=== PATIENT | male | born 1955 | race Caucasian/White ===

== ENCOUNTER 2024-10-07 09:20 | Outpatient (REF) | payer MEDICARE, OTHER, SELFPAY ==
--- OUTSIDE RECORDS SUMMARY | 2024-10-07 10:19 | XMS_ITS ---
Author Name [facility] Organization Unknown Encounters Encounter Type Encounter Reason Primary Diagnosis Location Date Ambulatory [facility], [facility]. ([facility]) 05/21/2024
[2024-10-07 11:16] LABS: Rheumatoid Factor < 13.0 IU/mL (<15.0)
[2024-10-07 11:21] LABS: Erythrocyte Sedimentation Rate 12 MM/HR (0-15)
[2024-10-08 09:23] LABS: Lyme Abs Screen <0.90 index
[2024-10-09 13:18] LABS: IgA 309 mg/dL (70-320); IgG 1127 mg/dL (600-1540); IgM 85 mg/dL (50-300)
[2024-10-11 22:24] LABS: HLA B27 Negative (Negative)
== END 2024-10-07 09:21 | disposition home or self-care (01) ==
LOC: HO.LAB 09:20
PROVIDERS: Visit Provider Psychiatry & Neurology Neurology
DX: G62.9 Polyneuropathy, unspecified (principal); M54.16 Radiculopathy, lumbar region
CPT/HCPCS: 36415; 82784; 85652; 86334; 86431; 86617; 86618; 86812

== ENCOUNTER 2024-11-03 09:51 | Outpatient (AMB) | payer MEDICARE, OTHER, SELFPAY ==
--- NOTE | 2024-11-03 10:08 | A.OFFVIS_ITS ---
Intake Visit Reasons: 4 week Allergies No Known Allergies Allergy (Unverified 01/07/20 16:39) HPI Comments Details: Patient seen by Dr Salvador [facility] Medical History (Updated 11/04/24 @ 08:39 by Kyle Salvador MD) Pre-diabetes HLD (hyperlipidemia) CAD (coronary artery disease) Small fiber neuropathy Assessment & Plan Assessment & Plan (1) Small fiber neuropathy: Comment: EMG/NCS at [facility] in August 2024: Reported normal but sural amplitudes are significant diminished, and superficial peroneal studies were not performed. Tibial motor CVs were in 30s. MRI T spine at [facility] in August 2024: DJD, extrusions at T6/7 and T7/8 (reported) MRI LS spine at [facility] in Jul 2024: DJD (reported) XR chest in Jun 2024: WNL (reported) XR LS spine in Jun 2024: Multilevel DJD with dextroscoliosis (reported) Code(s): G62.9 - Polyneuropathy, unspecified Category: Medical (2) Peripheral neuropathy: Code(s): G62.9 - Polyneuropathy, unspecified Category: Medical Qualifiers: Peripheral neuropathy type: polyneuropathy, unspecified Qualified Code(s): G62.9 - Polyneuropathy, unspecified Plan Seen by Dr. Salvador Coding Level of Care Code Est Pt Level 4 (13971) Diagnoses Small fiber neuropathy G62.9 Peripheral polyneuropathy G62.9 Peripheral neuropathy type: polyneuropathy, unspecified
--- OUTSIDE RECORDS SUMMARY | 2024-11-03 10:38 | XMS_ITS ---
Author Name [facility] Organization Unknown Encounters Encounter Type Encounter Reason Primary Diagnosis Location Date Ambulatory [facility], [facility]. ([facility]) 05/21/2024
--- OUTSIDE RECORDS SUMMARY | 2024-11-03 10:38 | XMS_ITS | Encounter Summary ---
Author Organization [facility] Address [address] [place] [address] Care Team Providers Care Software Engineering Manager Name Role Phone Maria Antonia pineda DAVIAN Primary Care Provider [phone] Encounter Details Date Type Department Care Team (Late st Contact Info) Description 06/18/[address] [facility] - Main Lab [address] [place] [phone] Juliann Prieto, PA [address] [facility] [address] [place] [address] Dysuria Social History Tobacco Use Types Packs/Day Years Used Date Smoking Tobacco: Never Smokeless Tobacco: Never Alcohol Use Standard Drinks/Week Comments Never 0 (1 standard drink = 0.6 oz pur e alcohol) Sex and Gender Information Value Date Recorded Sex Assigned at Not on file Legal Sex Male 1:31 PM EST Gender Identity Not on file Sexual Orientation Not on file documented as of this encounter Plan of Treatment Not on file documented as of this encounter Procedures Procedure Name Priority Date/Time Associated Diagnosis Comments CHLAMYDIA TRACHOMATIS AND NEISSERIA GONORRHOEAE PCR Routine 06/18/2024 1:20 PM EST Dysuria documented in this encounter Results * Chlamydia trachomatis and Neisseria gonorrhoeae molecular study (06/18/2024 1:20 PM EST) Neisseria gonorrhoeae PCR Negative Negative LAB MOLECULAR DIAGNOSTICS METHOD 06/19/2024 11:[address] [facility] Chlamydia trachomatis PCR Negative Negative LAB MOLECULAR DIAGNOSTICS METHOD 06/19/2024 11:[address] [facility] Urine Urethral structure / Unknown 06/18/2024 1:20 PM EST 06/18/2024 3:43 PM EST us Juliann [facility] MICROBIOLOGY - GENERAL ORDER MANPREET Final Result [facility] [address] [place] [address], documented in this encounter Visit Diagnoses Diagnosis Dysuria documented in this encounter Care Teams Software Engineering Manager Relationship Specialty Start Date End Date Maria Antonia Miramontes NP [address] [facility] [place] [address] PCP - General 03/01/23 documented as of this encounter
== END 2024-11-03 10:25 | disposition left against medical advice (07) ==
LOC: HO.HSM 09:52
PROVIDERS: PCP Nurse Practitioner Gerontology; Referring Provider Nurse Practitioner Gerontology; Visit Provider Psychiatry & Neurology Neurology
DX: G62.9 Polyneuropathy, unspecified (principal)
CPT/HCPCS: 99214

== ENCOUNTER → 2024-11-03 09:51 | Outpatient (BNVA) | payer MEDICARE, OTHER, SELFPAY | PROVIDERS: PCP Nurse Practitioner Gerontology; Referring Provider Nurse Practitioner Gerontology; Visit Provider Psychiatry & Neurology Neurology | DX: G62.9 Polyneuropathy, unspecified (principal) | CPT/HCPCS: 99212 ==

== ENCOUNTER 2024-11-04 08:16 | Outpatient (AMB) | payer MEDICARE, OTHER, SELFPAY ==
--- OUTSIDE RECORDS SUMMARY | 2024-11-04 08:19 | XMS_ITS | Encounter Summary ---
Author Organization [facility] Address [address] [place] [address] Care Team Providers Care Underbaster Name Role Phone Maria Antonia pineda DAVIAN Primary Care Provider Encounter Details Date Type Department Care Team (Late st Contact Info) Description 06/18/2024 Lab Requisition [facility] - Main Lab [address] [place] [phone] Juliann Prieto, PA [address] [facility] [address] [place] [address] Dysuria Social History Tobacco Use Types Packs/Day [...] MOLECULAR DIAGNOSTICS METHOD 06/19/2024 11:45 AM EST [facility] Chlamydia trachomatis PCR Negative Negative LAB MOLECULAR DIAGNOSTICS METHOD 06/19/2024 11:45 AM EST [facility] Urine Urethral structure / Unknown 06/18/2024 1:20 PM EST 06/18/2024 3:43 PM EST us Juliann [facility] MICROBIOLOGY - GENERAL ORDER MANPREET Final Result [facility] [address] [place] [address], documented in this encounter Visit Diagnoses Diagnosis Dysuria documented in this encounter Care Teams Underbaster Relationship Specialty Start Date End Date Maria Antonia Miramontes NP [address] [facility] [address] PCP - General 03/01/23 documented as of this encounter
--- NOTE | 2024-11-04 08:25 | A.OFFVIS_ITS ---
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 [facility] Medical History (Updated 11/04/24 @ 08:39 by Kyle Salvador MD) Pre-diabetes HLD (hyperlipidemia) CAD (coronary artery disease) Small fiber neuropathy Review of Systems Const Details: Constitutional:?No fever, chills, fatigue, weight loss, or night sweats. HEENT:?No headache, vision changes, hearing loss, nasal congestion, sore throat. Neurological:? Numbness in feet Psychiatric:?No anxiety, depression, mood swings, sleep disturbance, or hallucinations. Endocrine:?No heat/cold intolerance, polydipsia, polyuria, or hair/skin changes. Hematologic/Lymphatic:?No easy bruising, bleeding, or lymphadenopathy. Integumentary (Skin):?No rash, lesions, itching, or color changes. ? Physical Exam Neuro Other: Mental Status: Alert and oriented to person, place, and time. Normal attention. Normal spontaneous speech, fluency, and comprehension. No obvious issues with mood and memory. Affect is appropriate. Cranial Nerves: CN II: Visual giron full to confrontation, visual acuity intact. CN III, IV, : Pupils equal, round, reactive to light and accommodation. Extraocular movements are normal. CN V: Facial sensation is normal. CN VII: Facial movements symmetrical. CN VIII: Hearing intact to bedside conversation is normal. CN IX, X: Palate elevates symmetrically. CN XI: Shoulder shrug and head turn symmetrical. CN XII: Tongue midline without atrophy or fasciculations. Motor: Bulk and tone normal in all extremities. No significant muscle weakness in arms and legs. No drift. Reflexes: Deep tendon reflexes 2+ and symmetric. Plantar response down-going bilaterally. Coordination: [id number] and [id number] testing normal. No dysmetria. Gait and Station: No obvious gait abnormality. No ataxia or instability. Sensory: Intact to light touch, pinprick, and vibration. Romberg is negative. Extrapyramidal: Full facial expressions and blinking. No rigidity. Movements are appropriate with no tremor or abnormality. Speech: Normal; no dysarthria or tremor. Assessment & Plan Assessment & Plan (1) Small fiber neuropathy: Comment: EMG/NCS at [facility] in August 2024: Reported normal but sural amplitudes are significant diminished, and superficial peroneal studies were not performed. Tibial motor CVs were in 30s. MRI T spine at [facility] in August 2024: DJD, extrusions at T6/7 and T7/8 (reported) MRI LS spine at [facility] in Jul 2024: DJD (reported) XR chest in Jun 2024: WNL (reported) XR LS spine in Jun 2024: Multilevel DJD with dextroscoliosis (reported) Code(s): G62.9 - Polyneuropathy, unspecified Category: Medical (2) Peripheral neuropathy: Code(s): G62.9 - Polyneuropathy, unspecified Category: Medical Qualifiers: Peripheral neuropathy type: polyneuropathy, unspecified Qualified Code(s): G62.9 - Polyneuropathy, unspecified Plan Impression: a: Painful peripheral neuropathy. More common cause of this is diabetes or prediabetes b: Lumbar and thoracic degenerative disc disease without significant stenosis Rec: a: Avoid diabetes b: Regular exercise to maintain weight c: No alcohol, as it was another common cause of neuropathy d: A medicine at night can be considered if it would start affecting his sleep e: F/u EMG/NCS in a year Coding Level of Care Code Tele Est Pt Level 5 (24446) Diagnoses Small fiber neuropathy G62.9 Peripheral polyneuropathy G62.9 Peripheral neuropathy type: polyneuropathy, unspecified
== END 2024-11-04 08:49 | disposition home or self-care (01) ==
LOC: HO.HSM 08:17
PROVIDERS: PCP Nurse Practitioner Gerontology; Visit Provider Psychiatry & Neurology Neurology
DX: G62.9 Polyneuropathy, unspecified (principal)
CPT/HCPCS: 99214

== ENCOUNTER → 2024-11-04 08:16 | Outpatient (BNVA) | payer MEDICARE, OTHER, SELFPAY | PROVIDERS: PCP Nurse Practitioner Gerontology; Visit Provider Psychiatry & Neurology Neurology | DX: G62.89 Other specified polyneuropathies (principal); R73.03 Prediabetes | CPT/HCPCS: 99212 ==